=== PATIENT | male | born 1955 | race Caucasian/White ===

== ENCOUNTER 2025-03-07 11:15 | Emergency (ER) | payer MEDICARE, OTHER ==
[~2025-03-07] VITALS: Ht 162.6 cm; Wt 63.6 kg
[2025-03-07 11:18] VITALS: TEMP 98.1
[2025-03-07] MEDS ORDERED: ATOR20TA PO (11:18)
[2025-03-07] MEDS ORDERED: TAMS0.4C94 PO (11:18)
[2025-03-07 11:45] LABS: PLATELET COUNT (AUTO) 216 K/uL (150-450); RED BLOOD CELL COUNT(AUTO) 4.29 MIL/uL (4.50-5.90); RED CELL DISTRIBUTION WIDTH 13.9 % (11.5-14.5); WHITE BLOOD COUNT (AUTO) 7.4 K/uL (4.5-11.0)
[2025-03-07 11:56] LABS: CALCIUM, TOTAL 9.2 mg/dL (8.8-10.5); CREATININE 0.88 mg/dL (0.60-1.30); GLOMERULAR FILTR. RATE CALC > 60 mL/min (>60); GLUCOSE,RANDOM 103 mg/dL (70-110); SODIUM SERUM 141 mmol/L (136-145); UREA NITROGEN, BLOOD 21 mg/dL (7-18)
[2025-03-07 13:05] VITALS: BP 147/76; PULSE 66; RESP 18; O2SAT 100
== END 2025-03-07 13:13 | disposition home or self-care (01) ==
LOC: EMS 11:22
DX: T65.891A Toxic effect of other specified substances, accidental (unintentional), initial encounter (principal); E78.00 Pure hypercholesterolemia, unspecified; I10 Essential (primary) hypertension; Z79.899 Other long term (current) drug therapy; Y92.89 Other specified places as the place of occurrence of the external cause
CPT/HCPCS: 80048; 85025; 99283